=== PATIENT | female | born 1970 | race Caucasian/White ===

== ENCOUNTER → 2017-08-15 | Outpatient (CLI) | payer BC, OTHER ==
[~2017-08-15] MED LIST: NOHOMEMEDICATIONS; NORCO 5-325 TA1 EACH PO
== END ==
LOC: RAD 10:23
DX: Z12.31 Encounter for screening mammogram for malignant neoplasm of breast (principal)

== ENCOUNTER → 2018-08-21 | Outpatient (CLI) | payer BC, OTHER | LOC: RAD 09:30 | DX: Z12.31 Encounter for screening mammogram for malignant neoplasm of breast (principal) ==

== ENCOUNTER 2020-08-11 11:31 | Emergency (ER) | payer BC, OTHER ==
[~2020-08-11] VITALS: Ht 160 cm; Wt 72.6 kg
[2020-08-11 14:47] LABS: URINE BILIRUBIN NEGATIVE (Negative); URINE BLOOD 3+ (Negative); URINE CLARITY CLEAR; URINE COLOR YELLOW; URINE GLUCOSE-RANDOM* NEGATIVE (Negative); URINE KETONES NEGATIVE (Negative); URINE LEUKOCYTES-REFLEX NEGATIVE (Negative); URINE NITRITE-REFLEX NEGATIVE (Negative); URINE PROTEIN (DIPSTICK) NEGATIVE (Negative); URINE SPECIFIC GRAVITY 1.015 (1.005-1.035); URINE UROBILINOGEN 0.2 E.U./dl (0.2-1.0)
[2020-08-11 14:56] LABS: AMP/METHAMP Negative (Negative); BARBITURATES Negative (Negative); BENZODIAZEPINES Negative (Negative); COCAINE Negative (Negative); METHADONE Negative (Negative); OPIATES Negative (Negative); PCP Negative (Negative)
[2020-08-11 15:01] LABS: SQUAMOUS >10 Many /LPF (0-3)
[2020-08-11 15:02] LABS: BACTERIA-REFLEX None Seen /HPF (None Seen); CASTS None Seen /LPF (None Seen); CRYSTALS None Seen /LPF (None Seen); URINE RBC 0-2 Rare /HPF (0-2); URINE WBC-REFLEX 0-5 Rare /HPF (0-5)
[2020-08-11] MEDS ORDERED: MECLIZINE HCL25 M1 PO (15:47)
[2020-08-11] MEDS ORDERED: VALIUM2 MG PO (15:47)
[2020-08-11 16:22] VITALS: BP 108/67
== END 2020-08-11 16:20 | disposition home or self-care (01) ==
LOC: ER 11:31
PROVIDERS: Emergency Medicine
DX: H81.10 Benign paroxysmal vertigo, unspecified ear (principal)